=== PATIENT | female | born 1965 | race Caucasian/White ===

== ENCOUNTER 2018-08-03 12:18 | Emergency (ER) | payer MEDICAID ==
[~2018-08-03] VITALS: Ht 160 cm; Wt 85.7 kg
[2018-08-03 12:25] VITALS: BP 150/64
--- NOTE | 2018-08-03 12:30 | NUR ---
PATIENT AMBULATED TO BED 6 AT THIS TIME.
--- NOTE | 2018-08-03 12:45 | NUR ---
PATIENT BIB SELF DUE TO HEADACHE/N/V/FEVER AND COUGH X 1 WEEK.DENIES ANY INJURY;AAOX4 WITH EVEN AND STEADY GAIT; PT STATES SHE TOOK TYLENOL FOR FEVER;PATIENT POSITIONED FOR COMFORT; HOB ELEVATED; BEDRAILS UP X2; BED DOWN.ALL MONITORS IN PLACED; ER MD MADE AWARE OF PT STATUS.
[2018-08-03] MEDS ORDERED: PROMETHAZINE 25 MG/ML VIAL IM ONE (13:00)
[2018-08-03] MEDS ORDERED: KETOROLAC 60 MG/2 ML VIAL IM ONE (13:00)
[2018-08-03] MEDS ORDERED: MORPHINE SULFATE 2 MG/ML SYR IM ONE (13:00)
[2018-08-03 13:45] LABS: BARBITURATE, URINE NEG. ng/ml (NEG <=200); BENZODIAZEPINE, URINE NEG. ng/mL (NEG <=200); CANNABINOID, URINE NEG. ng/mL (NEG <=50); COCAINE, URINE NEG. ng/mL (NEG <=300); OPIATE, URINE NEG. ng/mL (NEG <=2000); PHENCYCLIDINE SCREEN,URINE NEG. ng/mL (NEG <=25)
[2018-08-03 15:35] VITALS: BP 128/85
--- NOTE | 2018-08-03 15:35 | NUR ---
Patient discharged with v/s stable. Written and verbal after care instructions given and explained. Patient alert, oriented and verbalized understanding of instructions. Ambulatory with steady gait. All questions addressed prior to discharge. ID band removed. Patient advised to follow up with PMD. Rx of FIORICET [id number] given. Patient educated on indication of medication including possible reaction and side effects. Opportunity to ask questions provided and answered.
== END 2018-08-03 15:35 | disposition home or self-care (01) ==
LOC: MED 12:18
DX: R51 Headache (principal); J45.909 Unspecified asthma, uncomplicated
CPT/HCPCS: 70450; 80305; 81002; 81025; 96372; 99284; J1885; J2270; J2550

== ENCOUNTER 2018-08-11 15:33 | Emergency (ER) | payer MEDICAID ==
[~2018-08-11] VITALS: Ht 157.5 cm; Wt 75.8 kg
[2018-08-11 15:44] VITALS: BP 149/93
--- NOTE | 2018-08-11 15:58 | NUR ---
Patient being evaluated by physician at bedside.
--- NOTE | 2018-08-11 16:00 | NUR ---
52Y/F BIB SELF C/O UPPER BACK PAIN WITH SOB X 2 DAYS; DENIE INJURY. PT IS SAT 02 AT 99% AT THIS TIME, AAOX4, VSS AT THSI TIME, EVEN AND UNLABOPRED BREATHING, BED DOWN, BEDRAIL UP X 1 , ER MD AWARE AND NOTTIFIED OF PT STATUS. HX; ASTHMA RX; PT DOES NOT REMEMBER
[2018-08-11] MEDS ORDERED: KETOROLAC 30 MG/ML VIAL IM ONE (16:10)
[2018-08-11] MEDS ORDERED: ALBUTEROL SULFATE/IPRATROPIU 3 ML SOL IH ONE (16:10)
--- NOTE | 2018-08-11 17:10 | NUR ---
X-RAY AT PT BEDSIDE
[2018-08-11 18:24] VITALS: BP 135/89
--- NOTE | 2018-08-11 18:24 | NUR ---
Patient discharged with v/s stable. Written and verbal after care instructions given and explained. Patient alert, oriented and verbalized understanding of instructions. Ambulatory with steady gait. All questions addressed prior to discharge. ID band removed. Patient advised to follow up with PMD. Rx of albuterol and motrin given. Patient educated on indication of medication including possible reaction and side effects. Opportunity to ask questions provided and answered.
== END 2018-08-11 18:24 | disposition home or self-care (01) ==
LOC: MED 15:33
DX: S29.012A Strain of muscle and tendon of back wall of thorax, initial encounter (principal); J45.901 Unspecified asthma with (acute) exacerbation; X58.XXXA Exposure to other specified factors, initial encounter; Y93.89 Activity, other specified; Y92.89 Other specified places as the place of occurrence of the external cause; Y99.8 Other external cause status
CPT/HCPCS: 71045; 94640; 96372; 99283; J1885; J7620; Q0092

== ENCOUNTER 2024-05-17 12:47 | Emergency (ER) | payer SELFPAY ==
[~2024-05-17] VITALS: Ht 160 cm; Wt 75.3 kg
[2024-05-17 13:28] VITALS: BP 145/84; PULSE 71; RESP 16; TEMP 97.2; O2SAT 98
[2024-05-17] MEDS: KETOROLAC 60 MG/2 ML VIAL IM ONE (14:17)
[2024-05-17 14:59] LABS: APPEARANCE,URINE CLEAR (CLEAR); BILIRUBIN,URINE NEGATIVE (NEGATIVE); BLOOD, URINE NEGATIVE (NEGATIVE); COLOR,URINE YELLOW (YELLOW); LEUKOCYTE ESTERASE ,URINE NEGATIVE (NEGATIVE); NITRITE, URINE NEGATIVE (NEGATIVE); PROTEIN,URINE NEGATIVE (NEGATIVE); UGLUCOSE NEGATIVE (NEGATIVE); UROBILINOGEN,URINE 0.2 EU/dL (0.2 - 1)
[2024-05-17 15:11] LABS: BASOPHILS # (AUTO) 0.1 K/uL (0.00-0.22); BASOPHILS % (AUTO) 2.4 % (0.0-2.0); EOSINOPHILS % (AUTO) 0.5 % (0.0-4.0); HEMOGLOBIN 13.3 g/dL (12.0-16.0); LYMPHOCYTES # (AUTO) 1.4 K/uL (2.5-16.5); LYMPHOCYTES % (AUTO) 30.3 % (20.5-51.1); MEAN CORPUSCULAR HEMOGLOBIN 28 pg (27-31); MEAN CORPUSCULAR HGB CONC 32 g/dL (33-37); MEAN CORPUSCULAR VOLUME 85.6 fL (80-94); MONOCYTES # (AUTO) 0.3 K/uL (0.8-1.0); MONOCYTES % (AUTO) 7.4 % (1.7-9.3); NEUTROPHILS # (AUTO) 2.7 K/uL (1.8-7.7); NEUTROPHILS % (AUTO) 59.4 % (42.2-75.2); PLATELET COUNT (AUTO) 271 K/uL (140-450); RED CELL DISTRIBUTION WIDTH 14.8 % (11.6-13.7); WHITE BLOOD COUNT (AUTO) 4.5 K/uL (4.8-10.8)
[2024-05-17 15:19] LABS: CALCIUM 9.2 mg/dL (8.5-10.1); CARBON DIOXIDE 29.1 mmol/L (21-32); CREATININE 0.7 mg/dL (0.6-1.3); POTASSIUM 4.1 mmol/L (3.5-5.1)
[2024-05-17] MEDS ORDERED: CYCL-711 PO (17:20)
[2024-05-17] MEDS ORDERED: MELO-176 PO (17:20)
[2024-05-17 18:09] VITALS: BP 126/76; PULSE 57; RESP 20; TEMP 97.2; O2SAT 99
== END 2024-05-17 18:09 | disposition home or self-care (01) ==
LOC: MED 12:47
DX: S29.012A Strain of muscle and tendon of back wall of thorax, initial encounter (principal); J45.909 Unspecified asthma, uncomplicated; Z79.899 Other long term (current) drug therapy; X58.XXXA Exposure to other specified factors, initial encounter; Y93.89 Activity, other specified; Y92.89 Other specified places as the place of occurrence of the external cause; Y99.8 Other external cause status
CPT/HCPCS: 36415; 71046; 73010; 80048; 81003; 85025; 85379; 96372; 99285; J1885